=== PATIENT | female | born 1990 | race Caucasian/White ===

== ENCOUNTER 2018-03-01 20:03 | Emergency (ER) | payer MEDICAID, OTHER ==
[~2018-03-01] VITALS: Ht 157.5 cm; Wt 64.4 kg
[~2018-03-01 20:03] MED LIST: IBUPROFEN600 MG ORAL; NITROFURANTOIN100 M2 ORAL; NKM; TRAMADOL HCL50 MG ORAL; ZOFRAN ODT4 MG ORAL
[2018-03-01] MEDS ORDERED: anti anxiety med (20:13)
--- NOTE | 2018-03-01 20:29 | Emergency Room Report ---
History of Present Illness General Chief Complaint: Headache Source: Patient Present Illness HPI Patient presents with complaints of headache reports that initially She had some similar components to her usual headache with cold feeling in the back of her head Pain diffuse However she feels that she had now increased pain to both ears She felt a bandlike pain which she has not had before She reports sleeping yesterday with wet hair which she usually does not do She also feels that her upper neck area had become more uncomfortable and painful Denies any photophobia denies any vomiting denies any fevers or chills Allergies: Coded Allergies: No Known Allergies (Unverified , 07/10/16) Patient History Past Medical History: see triage record Pertinent Family History: none Last Menstrual Period: January Reviewed Nursing Documentation: PMH: Agreed; PSxH: Agreed Nursing Documentation-PM Past Medical History: No Stated History History Of Psychiatric Problem: Yes - anxiety Review of Systems All Other Systems: negative except mentioned in HPI Physical Exam Vital Signs Date Time Temp Pulse Resp B/P (MAP) Pulse Ox O2 Delivery O2 Flow Rate FiO2 03/01/18 20:07 98.2 76 18 102/71 97 Room Air 98.2 Sp02 EP Interpretation: reviewed, normal General Appearance: well appearing, no apparent distress Head: normocephalic, atraumatic Eyes: bilateral eye PERRL, bilateral eye EOMI ENT: hearing grossly normal, normal pharynx, TMs + canals normal, uvula midline Neck: full range of motion, supple, no meningismus, no bony tend Respiratory: lungs clear, normal breath sounds, no rhonchi, no respiratory distress, no retraction, no accessory muscle use Cardiovascular #1: normal peripheral pulses, regular rate, rhythm, no edema, no gallop, no JVD, no murmur Gastrointestinal: normal bowel sounds, non tender, soft, no mass, no organomegaly, non-distended, no guarding, no hernia, no pulsatile mass, no rebound Genitourinary: no CVA tenderness Musculoskeletal: normal inspection Neurologic: oriented x3, responsive, equipment inspector III-XII nml as tested, motor strength/ tone normal, sensory intact Psychiatric: mood/affect normal Skin: normal color, no rash, warm/dry, palpation normal Lymphatic: normal inspection, no adenopathy Medical Decision Making Diagnostic Impression: Primary Impression: Headache ER Course Multiple differentials considered Including but not limited to intracranial pathology, infectious Patient otherwise has a benign neurological evaluation given the Change in her type of headache and the intensity level patient did have imaging obtained No obvious acute pathology is appreciated patient has done better with acute intervention and will have initial conservative outpatient trial Last Vital Signs Date Time Temp Pulse Resp B/P (MAP) Pulse Ox O2 Delivery O2 Flow Rate FiO2 03/01/18 20:07 98.2 76 18 102/71 97 Room Air 98.2 Status: improved Disposition: HOME, SELF-CARE Condition: Improved Scripts Acetaminophen With Codeine (T#3) (TYLENOL #3 TAB*) Y Tab 1 TAB ORAL Q8H PRN for For Pain, #10 TAB Prov: Ina Capps DO 03/01/18 Ibuprofen* (MOTRIN*) 600 Mg Tablet 600 MG ORAL Q8H PRN for For Pain, #20 TAB 0 Refills Prov: Ina Capps DO 03/01/18 Additional Instructions: Patient is provided with the discharge instructions notified to follow up with primary doctor in the next 2-3 days otherwise return to the er with any worsening symptoms. Please note that this report is being documented using Ventive technology. This can lead to erroneous entry secondary to incorrect interpretation by the dictating instrument. Ina Capps DO Mar 01, 2018 20:29
[2018-03-01] MEDS ORDERED: HYDROcodone/Acetamin 10/325 tab ORAL ONE (20:30)
[2018-03-01] MEDS ORDERED: Ketorolac 60mg Inj IM ONE (20:30)
[2018-03-01 20:45] VITALS: BP 104/71
[2018-03-01] MEDS ORDERED: ACETAMINOPHEN-1 EAC1 ORAL (21:22)
[2018-03-01] MEDS ORDERED: IBUPROFEN600 MG ORAL (21:22)
[2018-03-01 21:28] VITALS: BP 104/71
--- NOTE | 2018-03-02 09:53 | Diagnostic Imaging Report ---
Indication: Pain Technique: Continuous helical CT scanning of the head was performed utilizing automated exposure control without intravenous contrast material. Axial and coronal reconstructions were obtained. Comparison: None CT dose: Total DLP 1340.9 mGycm; CTDI vol 70.38 mGy Findings: There is no acute intracranial hemorrhage, mass effect or cortical edema. The ventricles, cisterns and sulci are within normal limits. The posterior fossa and fourth ventricle are unremarkable. Sellar and suprasellar regions are grossly unremarkable. Visualized mastoid air cells and paranasal sinuses are unremarkable. No focal lesions of the bony calvarium or soft tissues of the scalp are seen. IMPRESSION: No evidence of acute intracranial hemorrhage, mass effect or cortical edema. MRI may be obtained for more sensitive evaluation as clinically indicated. This corresponds with the statrad preliminary report. The CT scanner at [facility] is accredited by the [employer] and the scans are performed using protocols designed to limit radiation exposure to as low as reasonably achievable to attain images of sufficient resolution adequate for diagnostic evaluation.
== END 2018-03-01 21:34 | disposition home or self-care (01) ==
LOC: EMR 20:30
DX: R51 Headache (principal); F41.9 Anxiety disorder, unspecified
CPT/HCPCS: 70450; 96372; 99284

== ENCOUNTER 2019-08-05 22:23 | Emergency (ER) | payer OTHER ==
[~2019-08-05] VITALS: Ht 154.9 cm; Wt 62.6 kg
[~2019-08-05 22:23] MED LIST changes: +ACETAMINOPHEN-1 EAC1 ORAL; +anti anxiety med
--- NOTE | 2019-08-05 22:41 | NUR ---
ED Nurse Note: Pt walked in c/o bilateral ear pain with body aches and sore throat. Pt stated this occured 08/04 and got worse 08/05. Pt stated difficulty swollowing, no cough. ao4. nad. vss
[2019-08-05 22:42] VITALS: BP 115/67
[2019-08-05] MEDS ORDERED: Ketorolac 30mg Inj IV ONE (22:45)
[2019-08-05] MEDS ORDERED: Dexamethasone 4mg/ml vial IVP ONE (22:45)
[2019-08-05] MEDS ORDERED: cefTRIAXone 1 GM in NS 55 ML IVPB ONE (22:45)
--- NOTE | 2019-08-05 22:45 | NUR ---
ED Nurse Note: iv access established. blood collected; sent down to lab. family at bedside.
--- NOTE | 2019-08-05 22:47 | Emergency Room Report ---
History of Present Illness General Chief Complaint: Pain Source: Patient Present Illness HPI This is a 29-year-old female with no past medical history. Is with chief complaint of sore throat and ear pain. Onset yesterday. Also with fever. Worse with swallowing. Pain is 9 out of 10. No nausea no vomiting. Also with joint pain and body pain. Subjective fever. Allergies: Coded Allergies: No Known Allergies (Unverified , 07/10/16) Patient History Past Medical History: see triage record, old chart reviewed Past Surgical History: none Pertinent Family History: none Social History: Denies: smoking Last Menstrual Period: 07/24/19 Now: No : 1 Para: 1 Immunizations: other Reviewed Nursing Documentation: PMH: Agreed; PSxH: Agreed Review of Systems Constitutional: Reports: fever Eye: Denies: eye pain, blurred vision ENT: Reports: ear pain, throat pain; Denies: nose congestion, throat swelling Respiratory: Denies: cough, shortness of breath Cardiovascular: Denies: chest pain, palpitations Gastrointestinal: Denies: abdominal pain, diarrhea, nausea, vomiting Musculoskeletal: Denies: back pain, joint pain Skin: Denies: rash Neurological: Denies: headache, numbness Endocrine: Denies: increased thirst, increased urine Hematologic/Lymphatic: Denies: easy bruising All Other Systems: negative except mentioned in HPI Physical Exam Vital Signs Date Time Temp Pulse Resp B/P (MAP) Pulse Ox O2 Delivery O2 Flow Rate FiO2 08/05/19 22:26 98.6 96 18 87/61 (70) 98 Room Air Vitals with low blood pressure. Repeat normal Sp02 EP Interpretation: reviewed, normal General Appearance: well appearing, no apparent distress, alert Head: normocephalic, atraumatic Eyes: bilateral eye PERRL, bilateral eye EOMI ENT: hearing grossly normal, tonsillar swelling, pharyngeal erythema, tonsillar exudate Neck: full range of motion, supple, no meningismus Respiratory: chest non-tender, lungs clear, normal breath sounds Cardiovascular #1: regular rate, rhythm, no murmur Gastrointestinal: normal bowel sounds, non tender, no mass, no organomegaly, no bruit, non-distended Musculoskeletal: back normal, gait/station normal, normal range of motion Psychiatric: mood/affect normal Medical Decision Making Diagnostic Impression: Primary Impression: Acute tonsillitis Qualified Codes: J03.90 - Acute tonsillitis, unspecified ER Course Patient presents with acute tonsillitis/pharyngitis. Evidence of peritonsillar abscess, Bayron angina or retropharyngeal abscess. Better after IV medication and pain medication. Will discharge home. Last Vital Signs Date Time Temp Pulse Resp B/P (MAP) Pulse Ox O2 Delivery O2 Flow Rate FiO2 08/05/19 22:42 98.6 96 18 115/67 98 Room Air Status: improved Disposition: HOME, SELF-CARE Condition: Stable Scripts Ibuprofen* (MOTRIN*) 600 Mg Tablet 600 MG ORAL THREE TIMES A DAY, #30 TAB 0 Refills Prov: Marco Garrett MD 08/05/19 Hydrocodone/Acetaminophen 5-325* (HYDROCODONE/ACETAMINOPHEN 5-325*) 1 Each Tablet 1 TAB ORAL Q6H PRN for For Pain, #10 TAB 0 Refills Prov: Marco Garrett MD 08/05/19 Amoxicillin/Potassium Clav 875-125* (AUGMENTIN 875-125 TABLET*) 1 Each Tablet 1 TAB ORAL TWICE A DAY, #14 TAB Prov: Marco Garrett MD 08/05/19 Additional Instructions: Increase fluids. Salt water gargle follow-up with your doctor in 2 3 days for recheck. Return if worse. Marco Garrett MD Aug 05, 2019 22:47
[2019-08-05] MEDS ORDERED: HYDROmorphone 1mg/ml Carpuject IVP ONE (23:30)
[2019-08-05] MEDS ORDERED: HYDROCODON-ACE1 EA15 ORAL (23:50)
[2019-08-05] MEDS ORDERED: AUGMENTIN 875-1 EAC1 ORAL (23:50)
[2019-08-05] MEDS ORDERED: IBUPROFEN600 MG ORAL (23:50)
[2019-08-05 23:57] VITALS: BP 115/67
--- NOTE | 2019-08-05 23:58 | NUR ---
ER DISCHARGE NOTE: Patient is cleared to be discharged per ERMD, pt is aox4, on room air, with stable vital signs.accompanied by parent. pt was given dc and prescription instructions, pt was able to verbalize understanding, pt id band and iv site removed without complications. pt is able to ambulate with steady gait. pt took all belongings.
== END 2019-08-05 23:57 | disposition home or self-care (01) ==
LOC: EMR 22:50
DX: J03.90 Acute tonsillitis, unspecified (principal)
CPT/HCPCS: 96365; 96375; 99284; J0696; J1100; J1170; J1885; J2405

== ENCOUNTER 2020-08-18 13:24 | Emergency (ER) | payer MEDICAID, OTHER ==
[~2020-08-18] VITALS: Ht 154.9 cm; Wt 63.5 kg
[~2020-08-18 13:24] MED LIST changes: +AUGMENTIN 875-1 EAC1 ORAL; +HYDROCODON-ACE1 EA15 ORAL
--- NOTE | 2020-08-18 13:55 | Emergency Room Report ---
History of Present Illness General Chief Complaint: Earache Source: Patient Present Illness HPI 30-year-old female with no signal past medical history here complaining of bilateral ear pressure and tonsillar swelling with increased cervical lymphadenopathy. Reports that she has been having these symptoms for the past 2 days. Denies any fever and chills, loss of taste or smell, diarrhea, cough or congestion. Has not taken medication for symptom relief. Denies any swimming, vertigo, dizziness, hearing loss, tinnitus. Denies . Allergies: Coded Allergies: No Known Allergies (Unverified , 07/10/16) COVID-19 Screening Contact w/high risk pt: No Experienced COVID-19 symptoms?: No COVID-19 Testing performed CHEESE PACKER: No Patient History Past Medical History: see triage record Past Surgical History: none Pertinent Family History: none Last Menstrual Period: last week Now: No Immunizations: UTD Reviewed Nursing Documentation: PMH: Agreed; PSxH: Agreed Nursing Documentation-PMH Past Medical History: No Stated History Review of Systems All Other Systems: negative except mentioned in HPI Physical Exam Vital Signs Date Time Temp Pulse Resp B/P (MAP) Pulse Ox O2 Delivery O2 Flow Rate FiO2 08/18/20 13:28 98.1 97 18 117/77 (90) 97 Sp02 EP Interpretation: reviewed, normal General Appearance: no apparent distress, alert, GCS 15, non-toxic Head: normocephalic, atraumatic Eyes: bilateral eye normal inspection, bilateral eye PERRL ENT: tonsillar swelling, pharyngeal erythema, tonsillar exudate Neck: full range of motion, supple/symm/no masses Respiratory: chest non-tender, lungs clear, normal breath sounds, speaking full sentences Cardiovascular #1: regular rate, rhythm, no edema Gastrointestinal: normal bowel sounds, non tender, soft, non-distended, no guarding, no rebound Genitourinary: no CVA tenderness Musculoskeletal: back normal Neurologic: alert, motor strength/tone normal, oriented x3, sensory intact, responsive, speech normal Psychiatric: judgement/insight normal, memory normal, mood/affect normal, no suicidal/homicidal ideation Skin: no rash Lymphatic: adenopathy - Bilateral anterior cervical lymphadenopathy Medical Decision Making PA Attestation ALL Diagnosis and treatment plan reviewed and discussed with my supervising physician Dr. Broussard Diagnostic Impression: Primary Impression: Tonsillitis with exudate Additional Impression: Eustachian tube dysfunction ER Course 30-year-old female with no signal past medical history here complaining of bilateral ear pressure and tonsillar swelling with increased cervical lymphadenopathy. Reports that she has been having these symptoms for the past 2 days. Denies any fever and chills, loss of taste or smell, diarrhea, cough or congestion. Has not taken medication for symptom relief. Denies any swimming, vertigo, dizziness, hearing loss, tinnitus. Denies . Ddx considered but are not limited to: strep pharyngitis, URI, tonsillitis, peritonsillar abscess, influneza, otitis media, otitis externa Vital signs: are WNL, pt. is afebrile H&PE are most consistent with: Tonsillitis with exudate,eustachian tube dysfunction ORDERS: Augmentin, prednisone, Motrin ED INTERVENTIONS: None required at this time. DISCHARGE: At this time pt. is stable for d/c to home. Will provide printed patient care instructions, and any necessary prescriptions. Care plan and follow up instructions have been discussed with the patient prior to discharge. Patient take medication as directed, Lyrica secondary to bilateral anterior cervical lymphadenopathy due to throat infection, if worsening symptoms return to the emergency room Last Vital Signs Date Time Temp Pulse Resp B/P (MAP) Pulse Ox O2 Delivery O2 Flow Rate FiO2 08/18/20 13:28 98.1 97 18 117/77 (90) 97 Disposition: HOME, SELF-CARE Condition: Stable Scripts Ibuprofen* (MOTRIN*) 600 Mg Tablet 600 MG ORAL Q6H PRN for For Pain, #30 TAB 0 Refills Prov: Masoud Patton 08/18/20 Prednisone* (PREDNISONE*) 20 Mg Tablet 40 MG ORAL DAILY for 5 Days, #10 TAB Prov: Masoud Patton 08/18/20 Amoxicillin/Potassium Clav 875-125* (AUGMENTIN 875-125 TABLET*) 1 Each Tablet 1 TAB ORAL TWICE A DAY for 10 Days, #20 TAB Prov: Masoud Patton 08/18/20 Patient Instructions: Tonsillitis, [id number] Additional Instructions: Take medication as directed, follow-up with your primary care provider, if worsening symptoms return to the emergency room. Pain in ears with radiation from your left due to throat infection Masoud Patton Aug 18, 2020 13:55
[2020-08-18] MEDS ORDERED: IBUPROFEN600 M1 ORAL (13:57)
[2020-08-18] MEDS ORDERED: AUGMENTIN 875-1 EAC1 ORAL (13:57)
[2020-08-18] MEDS ORDERED: PREDNISONE20 MG ORAL (13:57)
--- NOTE | 2020-08-18 14:10 | NUR ---
ED Nurse Note: Pt cleared by health care Provider for discharge. DC instructions/prescription was given and explained to pt and verbalized understanding of teachings. All medical deviecs such as ID band removed. Pt is AAO x4, ambulatory and left with all personal belongings.
[2020-08-18 19:46] VITALS: BP 117/77
== END 2020-08-18 14:10 | disposition home or self-care (01) ==
LOC: EMR 13:55
DX: H69.90 Unspecified Eustachian tube disorder, unspecified ear (principal); J03.90 Acute tonsillitis, unspecified
CPT/HCPCS: 99282

== ENCOUNTER 2020-12-20 19:06 | Emergency (ER) | payer MEDICAID ==
[~2020-12-20] VITALS: Ht 154.9 cm; Wt 67.1 kg
[~2020-12-20 19:06] MED LIST changes: +IBUPROFEN600 M1 ORAL; +PREDNISONE20 MG ORAL
--- NOTE | 2020-12-20 19:18 | NUR ---
ED Nurse Note: Pt walked in from home, walks with a steady gait, axox4, vitals are stable as documetned on RA. Pt co of pain at the illiac crest area with a painful nodule that drained white fluid. Pt states that she has had this nodule for 3 days after changing detergents.
[2020-12-20] MEDS ORDERED: Lidocaine 1%/ 10mg/ml/EPI 0.01mg/ml 20ml INJ ONE ×2 (19:26→19:30)
--- NOTE | 2020-12-20 19:30 | Emergency Room Report ---
History of Present Illness General Chief Complaint: Skin Rash/Abscess Source: Patient Present Illness HPI Patient is a 30-year-old female presents for increased buttock rash and swelling. Reports having increased pain to an area where she attempted to squeeze a skin lesion. Subsequently began have increased pain and swelling. Denies any fever prior history of renal compromise. Had not been having any vomiting or diarrhea. Allergies: Coded Allergies: No Known Allergies (Unverified , 07/10/16) COVID-19 Screening Contact w/high risk pt: No Experienced COVID-19 symptoms?: No COVID-19 Testing performed INSURANCE DEFENSE ATTORNEY: No Patient History Reviewed Nursing Documentation: PMH: Agreed; PSxH: Agreed Nursing Documentation-PMH Past Medical History: No Stated History Review of Systems All Other Systems: negative except mentioned in HPI Physical Exam Vital Signs Date Time Temp Pulse Resp B/P (MAP) Pulse Ox O2 Delivery O2 Flow Rate FiO2 12/20/20 19:10 97.9 91 18 124/76 (92) 95 Room Air General Appearance: well appearing, no apparent distress, alert, GCS 15, non- toxic Head: normocephalic, atraumatic ENT: hearing grossly normal, normal voice Neck: full range of motion, supple Respiratory: chest non-tender, lungs clear, no respiratory distress, speaking full sentences Cardiovascular #1: normal inspection Gastrointestinal: normal inspection, soft Neurologic: alert, motor strength/tone normal, application manager III-XII nml as tested, oriented x3, normal gait Psychiatric: mood/affect normal Skin: other - Skin rash to the perineal area as well as a indurated area approximately 2 cm in diameter. To the left buttock cheek Procedures Incision and Drainage Incision and Drainage : Consent: Written Blade Size: 11 I & D Procedure: betadine prep, sterile drapes applied, sterile dressing applied Wound's Depth, Shape: superficial Wound Length (cm): 0 Wound Explored: clean Anesthesia: Lidocaine w/ Epi Volume Anesthetic (ccs): 2 Patient Tolerated: Well Complications: None Progress Patient advised risk benefits alternatives of incision and drainage. Patient consented to procedure. Area was prepped with Betadine. 1 cc of lidocaine with epinephrine was infiltrated to the skin. Abscess was opened with #11 blade. Small amount of purulent material. Patient tolerated this very well. Estimated blood loss less than 5 cc. Medical Decision Making Diagnostic Impression: Primary Impression: Skin abscess ER Course Presented for skin rash. Differential diagnosis include was not limited to abscess, insect bite, folliculitis among others. Patient has a benign exam and does not appear to require any imaging or laboratory testing at this time. Patient appears to have a superficial skin abscess. Does not appear to have any evidence of systemic toxicity. Incision and drainage was performed with drainage amount of purulent material. Patient given prescription for antibiotics. She was advised to have the area rechecked with her doctor in the next 2 to 3 days. She advised to return if worse. This medical record is generated with [employer] hatchery manager software. There may be some hatchery manager discrepancies related to use of this software Last Vital Signs Date Time Temp Pulse Resp B/P (MAP) Pulse Ox O2 Delivery O2 Flow Rate FiO2 12/20/20 19:10 97.9 91 18 124/76 (92) 95 Room Air Status: improved Disposition: HOME, SELF-CARE Condition: Stable Scripts Hydrocortisone 1% Oint (Hydrocortisone 1% Oint*) Y Oint 28 GM TP daily as needed, #30 GM Prov: Tommy Fong MD 12/20/20 Doxycycline Hyclate* (VIBRAMYCIN*) 100 Mg Capsule 100 MG ORAL EVERY 12 HOURS, #14 CAP 0 Refills Prov: Tommy Fong MD 12/20/20 Cephalexin* (KEFLEX*) 500 Mg Capsule 500 MG ORAL EVERY 6 HOURS, #28 CAP Prov: Tommy Fong MD 12/20/20 Tommy Fong MD Dec 20, 2020 19:30
[2020-12-20] MEDS ORDERED: CEPHALEXIN500 MG ORAL (19:42)
[2020-12-20] MEDS ORDERED: VIBRAMYCIN100 MG ORAL (19:42)
[2020-12-20] MEDS ORDERED: HYDROCORTISONE28 G2 TP (19:43)
[2020-12-20 19:45] VITALS: BP 128/77
[2020-12-20 19:55] VITALS: BP 120/82
--- NOTE | 2020-12-20 19:58 | NUR ---
ER DISCHARGE NOTE: Patient is cleared to be discharged per ERMD, pt is aox4, on room air, with stable vital signs. pt was given dc and prescription instructions, pt was able to verbalize understanding, pt id band removed. pt took all belingings. walks with a steady gait, left in a private car
== END 2020-12-20 19:55 | disposition home or self-care (01) ==
LOC: EMR 19:40
DX: L02.31 Cutaneous abscess of buttock (principal)
CPT/HCPCS: 10060; 81025; Z7502; 99283